=== PATIENT | male | born 1965 | race Caucasian/White ===

== ENCOUNTER 2021-05-18 11:02 | Emergency (ER) | payer MEDICARE ==
--- NOTE | 2021-05-18 12:51 | ED ---
General Adult HPI - General Source: patient, police, EMS, RN notes reviewed Mode of arrival: EMS Limitations: language barrier <Ned Beck - Last Filed: 05/18/21 12:50> <Steve Carias - Last Filed: 05/19/21 13:32> - General Stated complaint: failure to thrive Time Seen by Provider: 05/18/21 11:20 - History of Present Illness Initial comments: This a 55-year-old male presents emergency Department with police EMS for evaluation. Patient's was petitioned by family as he missed has not been taking care of himself, refusing medication and treatment. They state that he's been locked himself and to his apartment. Patient had a prior CVA. Limited verbal. Patient will answer that he has no complaints he is unsure why he is here denies any alcohol or drug abuse. (Ned Beck) - Related Data Home Medications Medication Instructions Recorded Confirmed Aspirin EC [Ecotrin Low Dose] 81 mg PO DAILY 05/18/21 05/18/21 Escitalopram [Lexapro] 10 mg PO DAILY 05/18/21 05/18/21 Famotidine [Pepcid] 20 mg PO BID 05/18/21 05/18/21 Loratadine [Claritin] 10 mg PO DAILY 05/18/21 05/18/21 Metoprolol Succinate [Toprol XL] 50 mg PO DAILY 05/18/21 05/18/21 Simvastatin [Zocor] 20 mg PO HS 05/18/21 05/18/21 lisinopriL [Zestril] 5 mg PO DAILY 05/18/21 05/18/21 Allergies Allergy/AdvReac Type Severity Reaction Status Date / Time Penicillins Allergy Unknown Verified 05/18/21 12:32 Review of Systems ROS Other: All systems not noted in ROS Statement are negative. <Ned Beck - Last Filed: 05/18/21 12:50> ROS Other: All systems not noted in ROS Statement are negative. <Steve Carias - Last Filed: 05/19/21 13:32> ROS Statement: Those systems with pertinent positive or pertinent negative responses have been documented in the HPI. General Exam Limitations: language barrier General appearance: alert, in no apparent distress Head exam: Present: atraumatic, normocephalic, normal inspection Eye exam: Present: normal appearance, PERRL, EOMI. Absent: scleral icterus, conjunctival injection, periorbital swelling ENT exam: Present: normal exam, normal oropharynx, mucous membranes moist Neck exam: Present: normal inspection, full ROM. Absent: tenderness, meningismus, lymphadenopathy Respiratory exam: Present: normal lung sounds bilaterally. Absent: respiratory distress, wheezes, rales, rhonchi, stridor Cardiovascular Exam: Present: regular rate, normal rhythm, normal heart sounds. Absent: systolic murmur, diastolic murmur, rubs, gallop, clicks GI/Abdominal exam: Present: soft, normal bowel sounds. Absent: distended, tenderness, guarding, rebound, rigid <Ned Beck - Last Filed: 05/18/21 12:50> Course <Steve Carias - Last Filed: 05/19/21 13:32> Vital Signs 05/18/21 05/18/21 05/18/21 11:05 18:00 21:48 Temperature 98.1 F Pulse Rate 82 78 80 Respiratory 18 18 18 Rate Blood Pressure 112/88 116/76 121/71 O2 Sat by Pulse 98 98 98 Oximetry 05/19/21 05/19/21 05/19/21 04:00 05:00 12:38 Temperature 97.4 F L 97.6 F Pulse Rate 76 75 80 Respiratory 15 18 18 Rate Blood Pressure 121/79 142/86 114/71 O2 Sat by Pulse 97 96 96 Oximetry - Reevaluation(s) Reevaluation #1: 05/18/21 20:37 Patient was evaluated by EPS. He is minimally verbal but history was obtained. At this time there was request made by EPS to have the patient evaluated by the psychiatrist Dr. Alba in the morning. (Steve Carias) Reevaluation #2: 05/19/21 13:32 The son is planning to turn the patient's care over to the state tomorrow. (Steve Carias) Medical Decision Making - Lab Data Result diagrams: 05/18/21 13:10 05/18/21 13:10 <Steve Carias - Last Filed: 05/19/21 13:32> - Medical Decision Making Patient had been medically cleared and evaluated by EPS and ultimately by the psychiatrist regarding need for inpatient psychiatric treatment. The patient does not meet criteria and does not require any further inpatient psychiatric treatment. He is stable for discharge. He will be given referral for outpatient services. (Steve Carias) - Lab Data Lab Results 05/18/21 05/18/21 05/18/21 Range/Units 13:10 13:10 13:10 WBC 8.1 (3.8-10.6) k/uL RBC 5.15 (4.30-5.90) m/uL Hgb 14.7 (13.0-17.5) gm/dL Hct 44.7 (39.0-53.0) % MCV 86.8 (80.0-100.0) fL MCH 28.5 (25.0-35.0) pg MCHC 32.8 (31.0-37.0) g/dL RDW 14.1 (11.5-15.5) % Plt Count 299 (150-450) k/uL MPV 6.9 Neutrophils % 64 % Lymphocytes % 29 % Monocytes % 5 % Eosinophils % 1 % Basophils % 1 % Neutrophils # 5.2 (1.3-7.7) k/uL Lymphocytes # 2.4 (1.0-4.8) k/uL Monocytes # 0.4 (0-1.0) k/uL Eosinophils # 0.1 (0-0.7) k/uL Basophils # 0.0 (0-0.2) k/uL Sodium 139 (137-145) mmol/L Potassium 4.3 (3.5-5.1) mmol/L Chloride 105 (98-107) mmol/L Carbon Dioxide 28 (22-30) mmol/L Anion Gap 6 mmol/L BUN 16 (9-20) mg/dL Creatinine 0.72 (0.66-1.25) mg/dL Est GFR (CKD-EPI)AfAm >90 (>60 ml/min/1.73 sqM) Est GFR (CKD-EPI)NonAf >90 (>60 ml/min/1.73 sqM) Glucose 88 (74-99) mg/dL Calcium 9.5 (8.4-10.2) mg/dL Total Bilirubin 0.5 (0.2-1.3) mg/dL AST 19 (17-59) U/L ALT 15 (4-49) U/L Alkaline Phosphatase 68 (38-126) U/L Total Protein 6.9 (6.3-8.2) g/dL Albumin 4.3 (3.5-5.0) g/dL TSH (0.465-4.680) mIU/L Urine Color Yellow Urine Appearance Turbid (Clear) Urine pH 7.5 (5.0-8.0) Ur Specific [place] 1.019 (1.001-1.035) Urine Protein Negative (Negative) Urine Glucose (UA) Negative (Negative) Urine Ketones Negative (Negative) Urine Blood Negative (Negative) Urine Nitrite Negative (Negative) Urine Bilirubin Negative (Negative) Urine Urobilinogen <2.0 (<2.0) mg/dL Ur Leukocyte Esterase Negative (Negative) Urine RBC 1 (0-5) /hpf Amorphous Sediment Few H (None) /hpf Urine Mucus Rare H (None) /hpf Urine Opiates Screen Not Detected (NotDetected) Ur Oxycodone Screen Not Detected (NotDetected) Urine Methadone Screen Not Detected (NotDetected) Ur Propoxyphene Screen Not Detected (NotDetected) Ur Barbiturates Screen Not Detected (NotDetected) U Tricyclic Antidepress Not Detected (NotDetected) Ur Phencyclidine Scrn Not Detected (NotDetected) Ur Amphetamines Screen Not Detected (NotDetected) U Methamphetamines Scrn Not Detected (NotDetected) U Benzodiazepines Scrn Not Detected (NotDetected) Urine Cocaine Screen Not Detected (NotDetected) U Marijuana (THC) Screen Detected H (NotDetected) Serum Alcohol <10 mg/dL 05/18/21 Range/Units 13:10 WBC (3.8-10.6) k/uL RBC (4.30-5.90) m/uL Hgb (13.0-17.5) gm/dL Hct (39.0-53.0) % MCV (80.0-100.0) fL MCH (25.0-35.0) pg MCHC (31.0-37.0) g/dL RDW (11.5-15.5) % Plt Count (150-450) k/uL MPV Neutrophils % % Lymphocytes % % Monocytes % % Eosinophils % % Basophils % % Neutrophils # (1.3-7.7) k/uL Lymphocytes # (1.0-4.8) k/uL Monocytes # (0-1.0) k/uL Eosinophils # (0-0.7) k/uL Basophils # (0-0.2) k/uL Sodium (137-145) mmol/L Potassium (3.5-5.1) mmol/L Chloride (98-107) mmol/L Carbon Dioxide (22-30) mmol/L Anion Gap mmol/L BUN (9-20) mg/dL Creatinine (0.66-1.25) mg/dL Est GFR (CKD-EPI)AfAm (>60 ml/min/1.73 sqM) Est GFR (CKD-EPI)NonAf (>60 ml/min/1.73 sqM) Glucose (74-99) mg/dL Calcium (8.4-10.2) mg/dL Total Bilirubin (0.2-1.3) mg/dL AST (17-59) U/L ALT (4-49) U/L Alkaline Phosphatase (38-126) U/L Total Protein (6.3-8.2) g/dL Albumin (3.5-5.0) g/dL TSH 1.320 (0.465-4.680) mIU/L Urine Color Urine Appearance (Clear) Urine pH (5.0-8.0) Ur Specific [place] (1.001-1.035) Urine Protein (Negative) Urine Glucose (UA) (Negative) Urine Ketones (Negative) Urine Blood (Negative) Urine Nitrite (Negative) Urine Bilirubin (Negative) Urine Urobilinogen (<2.0) mg/dL Ur Leukocyte Esterase (Negative) Urine RBC (0-5) /hpf Amorphous Sediment (None) /hpf Urine Mucus (None) /hpf Urine Opiates Screen (NotDetected) Ur Oxycodone Screen (NotDetected) Urine Methadone Screen (NotDetected) Ur Propoxyphene Screen (NotDetected) Ur Barbiturates Screen (NotDetected) U Tricyclic Antidepress (NotDetected) Ur Phencyclidine Scrn (NotDetected) Ur Amphetamines Screen (NotDetected) U Methamphetamines Scrn (NotDetected) U Benzodiazepines Scrn (NotDetected) Urine Cocaine Screen (NotDetected) U Marijuana (THC) Screen (NotDetected) Serum Alcohol mg/dL Disposition <Ned Beck M - Last Filed: 05/18/21 12:50> Is patient prescribed a controlled substance at d/c from ED?: No Time of Disposition: 13:32 <Steve Carias - Last Filed: 05/19/21 13:32> Clinical Impression: Depression Disposition: HOME SELF-CARE Condition: Fair Instructions (If sedation given, give patient instructions): Depression (ED) Referrals: None,Stated [Primary Care Provider] - 1-2 days Gokul Ferguson MD [REFERRING] - 1-2 days
[2021-05-18 13:29] LABS: Basophils % (A) 1 %; Eosinophils # (A) 0.1 k/uL (0-0.7); Eosinophils % (A) 1 %; HCT 44.7 % (39.0-53.0); HGB 14.7 gm/dL (13.0-17.5); Lymphocytes # (A) 2.4 k/uL (1.0-4.8); Lymphocytes % (A) 29 %; MCH 28.5 pg (25.0-35.0); MCHC 32.8 g/dL (31.0-37.0); MCV 86.8 fL (80.0-100.0); Mean Platelet Volume 6.9; Monocytes # (A) 0.4 k/uL (0-1.0); Monocytes % (A) 5 %; Neutrophils # (A) 5.2 k/uL (1.3-7.7); Neutrophils % (A) 64 %; Platelet Count 299 k/uL (150-450); RBC 5.15 m/uL (4.30-5.90); RDW 14.1 % (11.5-15.5); WBC 8.1 k/uL (3.8-10.6)
[2021-05-18 13:47] LABS: ALT 15 U/L (4-49); AST 19 U/L (17-59); African American GFR (CKD) >90 (>60 ml/min/1.73 sqM); Albumin 4.3 g/dL (3.5-5.0); Alcohol <10 mg/dL; Alkaline Phosphatase 68 U/L (38-126); Anion Gap 6 mmol/L; Blood Urea Nitrogen 16 mg/dL (9-20); Calcium 9.5 mg/dL (8.4-10.2); Carbon Dioxide 28 mmol/L (22-30); Chloride 105 mmol/L (98-107); Glucose 88 mg/dL (74-99); Non-African American GFR(CKD) >90 (>60 ml/min/1.73 sqM); Potassium 4.3 mmol/L (3.5-5.1); Sodium 139 mmol/L (137-145); Total Bilirubin 0.5 mg/dL (0.2-1.3); Total Protein 6.9 g/dL (6.3-8.2)
[2021-05-18 14:56] LABS: Amorphous Sediment,Urine Few /hpf; Appearance,Urine Turbid (Clear); Bilirubin,Urine Negative (Negative); Blood,Urine Negative (Negative); Color,Urine Yellow; Glucose,Urine (UA) Negative (Negative); Ketones,Urine Negative (Negative); Leukocyte Esterase,Urine Negative (Negative); Mucus,Urine Rare /hpf; Nitrite,Urine Negative (Negative); PH, Urine 7.5 (5.0-8.0); Protein,Urine Negative (Negative); RBC,Urine 1 /hpf (0-5); Specific Gravity,Urine 1.019 (1.001-1.035); Urobilinogen,Urine <2.0 mg/dL (<2.0)
[2021-05-18 15:06] LABS: Amphetamine Screen,Urine Not Detected (NotDetected); Barbiturate Screen,Urine Not Detected (NotDetected); Benzodiazepines Screen,Urine Not Detected (NotDetected); Cocaine Screen,Urine Not Detected (NotDetected); Methadone Screen, Urine Not Detected (NotDetected); Opiate Screen,Urine Not Detected (NotDetected); Oxycodone Screen, Urine Not Detected (NotDetected); Phencyclidine Screen,Urine Not Detected (NotDetected); Tricyclic Antidepressant,Urine Not Detected (NotDetected); Urn Cannabinoid Scrn Detected (NotDetected)
[2021-05-19 05:34] VITALS: RESP 18; TEMP 97.6
--- NOTE | 2021-05-19 13:10 | P.CN ---
Psychiatric Consult - . Consult date: 05/19/21 Consult:: 05/19/21 13:09 IDENTIFYING DATA: This patient is a , unemployed, 55-year-old male with significant history of CVA presented to the emergency department under petition for increased agitation, and failure to thrive. HISTORY OF PRESENT ILLNESS: The patient presented to the hospital under petition, brought in by police due to concerns that the patient has not been taking care of himself, refusing medication, treatment, and isolating himself in his apartment. Furthermore, as per petition, the patient has been noted by his son to be increasingly aggressive towards his caretakers which includes his son and [id number] and has recently came at his [id number] with a pen. The patient is nonverbal and is only able to answer yes or no fashion. He is unable to communicate by writing out his thoughts or feelings as well due to the deficits left by his stroke. Upon evaluation by this provider, the patient denies any suicidal or homicidal ideation, intention, and/or plan. He is not reporting any auditory or visual hallucinations. He is denying any paranoia or other delusions. The psychiatric evaluation is superficial at best as we are unable to identify any clear intentions for the patient as he has difficulty with communication. The patient is otherwise not reporting any significant issues when asked if there was concerns for his safety or his ability to care for himself. Furthermore, the patient denied that there was any issues regarding his hygiene, appetite, or sleep. Upon evaluation in the emergency department, initial diagnostic blood work dictated concern for failure to thrive. The patient's laboratory work was not concerning for any abnormalities. Collateral information was provided by the patient's son Jed Machado, who also filled out the petition for the patient. The patient's son is currently the patient's guardian. He reports that the patient has been increasingly isolative and has been not taking his medications and has been decreasing his appetite. He does express concern that the patient is trying to kill himself in this way. Despite this, the patient's son also reports that the patient does eat at least one meal a day and does supplement his nutrition with a boost beverage. PAST PSYCHIATRIC HISTORY: Patient denies any psychiatric history. He is currently prescribed Lexapro for depression and anxiety. He reports no prior psychiatric hospitalizations. He reports not patient's psychiatric follow-up. He denies any suicide attempts in the past. PAST MEDICAL HISTORY: Patient has a history of stroke. ALLERGIES: Penicillins CHEMICAL DEPENDENCY HISTORY: The patient denies any significant tobacco, marijuana, alcohol, or illicit drug use. FAMILY PSYCHIATRIC/SUBSTANCE USE HISTORY: Unable to assess. SOCIAL HISTORY: The patient's son is his guardian. He currently lives in an apartment by his son and [id number]. MENTAL STATUS EXAM: General Appearance: Patient appears to be disheveled, with unkempt hair and llamas, and long fingernails. Patient is wearing a hospital gown. Behavior: Patient is calmly lying in bed without any agitated behavior. Eye contact is appropriate. Approaches cooperative and polite. Speech: Patient is nonverbal. He is able to respond in a yes or no fashion. Mood/Affect: Patient gestures to this provider that his mood is "okay." Affect appears to be euthymic. Suicidality/Homicidality: The patient denies any suicidal or homicidal ideation, intention, and/or plan. Perceptions: Patient denies any visual hallucinations and denies any auditory hallucinations Though content/process: Limited in our ability to appropriately assess for any bizarre delusional thought content or abnormal thought processes the patient is nonverbal. Memory and concentration: Memory and concentration appeared to be grossly intact for the purposes of this session. Judgment and insight: Fair IMPRESSIONS: Failure to thrive - diagnostic blood work does not indicate any concerns about failure to thrive. Furthermore, the patient's and does admit the patient does intake some food. Status post CVA PLAN: -At this time patient DOES NOT meet criteria for inpatient psychiatric admiss ion. The patient would receive little to no benefit from a psychiatric admission as he would be unable to fully participate in both the care aspect and in the evaluation appropriately. At this time, the patient is not endorsing any significant psychiatric pathology despite what was written in the petition. Approach and affect of the patient are not consistent with depression at this time. Furthermore, the patient's diagnostic blood work revealed no significant issues regarding the patient's nutritional intake. -Recommend social work and disease case manager rn involvement in regards to providing this patient with appropriate services in the outpatient setting. -Would recommend the following medication changes/additions: Recommend initiation of Remeron 15 mg at bedtime for depression/anxiety/appetite stimulation. Discontinue patient's home medication of Lexapro. -Strongly recommend outpatient psychiatric follow-up for management and evaluation of depression which may be comorbid with the patient's history of stroke. -Discontinue one-to-one sitter -Patient is cleared psychiatrically for discharge. -Psychiatry will sign off at this point, please contact with any questions.
[2021-05-19 15:22] VITALS: BP 125/84; PULSE 87
[2021-05-19] MEDS ORDERED: MIRTAZAPINE 15 MG TAB PO SCH (21:00)
[2021-05-19 23:43] LABS: Folate, Serum 11.7 ng/mL (4.40-31.00)
== END 2021-05-19 15:30 | disposition home or self-care (01) ==
LOC: EC 11:02
DX: F32.9 Major depressive disorder, single episode, unspecified (principal); Z79.82 Long term (current) use of aspirin; Z88.0 Allergy status to penicillin
CPT/HCPCS: 99284; 36415; 82652; 80053; 84443; 82607; 82746; 85025; 81001; 80306; G0480; 80320

== ENCOUNTER 2022-04-30 13:16 | Emergency (ER) | payer MEDICARE ==
[2022-04-30 13:27] VITALS: RESP 18
--- NOTE | 2022-04-30 13:53 | ED ---
Recheck HPI - General Chief Complaint: Recheck/Abnormal Lab/Rx Stated Complaint: Abnormal Labs Time Seen by Provider: 04/30/22 13:20 Source: EMS, RN notes reviewed, old records reviewed Mode of arrival: EMS Limitations: language barrier (aphasia) - History of Present Illness Initial Comments: Patient is a 56-year-old male presents to the emergency department via EMS from [facility] with concerns regarding potentially being "symptomatic" from low calcium level from labs drawn recently. Corrected calcium from those labs revealed a normal calcium of 8.6. Patient has a chronically low albumin level due to poor oral intake with an albumin of 2.2. He does have generalized weakness however he has previously had a stroke and is currently suffering from Covid. He has aphasia with the use of his answer board he denies any shortness of breath or pain. In addition to his stroke history he has a past medical history significant for hypertension, hyperlipidemia, liver disease and was recently diagnosed with splenic and liver infarct in March of this year at [facility]. - Related Data Home Medications Medication Instructions Recorded Confirmed Aspirin EC [Ecotrin Low Dose] 81 mg PO DAILY 05/18/21 05/18/21 Escitalopram [Lexapro] 10 mg PO DAILY 05/18/21 05/18/21 Famotidine [Pepcid] 20 mg PO BID 05/18/21 05/18/21 Loratadine [Claritin] 10 mg PO DAILY 05/18/21 05/18/21 Metoprolol Succinate [Toprol XL] 50 mg PO DAILY 05/18/21 05/18/21 Simvastatin [Zocor] 20 mg PO HS 05/18/21 05/18/21 lisinopriL [Zestril] 5 mg PO DAILY 05/18/21 05/18/21 Allergies Allergy/AdvReac Type Severity Reaction Status Date / Time Penicillins Allergy Unknown Verified 04/30/22 13:27 Review of Systems ROS Statement: Those systems with pertinent positive or pertinent negative responses have been documented in the HPI. ROS Other: All systems not noted in ROS Statement are negative. Past Medical History Past Medical History: CVA/TIA, Hyperlipidemia, Hypertension, Liver Disease History of Any Multi-Drug Resistant Organisms: None Reported Past Psychological History: No Psychological Hx Reported Smoking Status: Never smoker Past Alcohol Use History: None Reported Past Drug Use History: None Reported General Exam Limitations: language barrier General appearance: alert, in no apparent distress Head exam: Present: atraumatic, normocephalic, normal inspection Eye exam: Present: normal appearance, PERRL. Absent: scleral icterus, conjunctival injection ENT exam: Present: mucous membranes moist Neck exam: Present: normal inspection. Absent: tenderness Respiratory exam: Present: rhonchi (Scattered improved with cough). Absent: respiratory distress, wheezes, rales, stridor, accessory muscle use Cardiovascular Exam: Present: regular rate, normal rhythm, normal heart sounds. Absent: systolic murmur, diastolic murmur, rubs, gallop, clicks GI/Abdominal exam: Present: soft, tenderness (chronic), normal bowel sounds. Absent: distended, guarding, rebound, rigid Rectal exam: Present: deferred Extremities exam: Present: normal inspection. Absent: pedal edema, joint swelling Back exam: Present: normal inspection Neurological exam: Present: alert, CN II-XII intact (grossly) Expanded Neurological exam: Present: protecting the airway Speech: Present: total aphasia Psychiatric exam: Present: flat affect Skin exam: Present: warm, dry, intact, normal color. Absent: rash Course Vital Signs 04/30/22 13:17 Temperature 97.8 F Pulse Rate 81 Respiratory 18 Rate Blood Pressure 105/74 O2 Sat by Pulse 98 Oximetry - Reevaluation(s) Reevaluation #1: Nurse called report to [facility] who advised that patient was sent to the emergency room for increased weakness to his right side; this is the affected stroke side. Due to their statement repeat neurological exam and assessment a patient completed. Bilateral lower extremity strength 4/5 in upper extremities 4/5 with right side slightly weaker than left. No significant abnormalities noted. Given previous CVA and known COVID diagnoses increased weakness on known deficits can be expected. No indication for repeat computed tomography scan at this time. Will continue with plans discharge back to [facility]. Time: 15:25 Medical Decision Making - Medical Decision Making 56-year-old male with known COVID positive living in [facility] presenting to the emergency department with concerns regarding symptomatic hypocalcemia and hyponatremia. Sodium levels marginally low. Calcium levels normal once corrected for low albumin. No indication for diagnostic imaging. Will repeat comp panel to confirm laboratory studies. Hemodynamically stable. Afebrile and satting well. Will continue to monitor. Review labs did show mild hyponatremia and hypochloremia will give IV fluids for dental hydration. Corrected calcium repeat 9.1. Overall mild generalized weakness with right side slightly weaker than left but at baseline according to patient. The use of his communication to well. No indication for further imaging or diagnostic testing. Will discharge patient back to [facility]. Case discussed with Dr. Vieira. - Lab Data Result diagrams: 04/30/22 13:20 Lab Results 04/30/22 Range/Units 13:20 Sodium 128 L (137-145) mmol/L Potassium 4.4 (3.5-5.1) mmol/L Chloride 93 L (98-107) mmol/L Carbon Dioxide 27 (22-30) mmol/L Anion Gap 8 mmol/L BUN 10 (9-20) mg/dL Creatinine 0.58 L (0.66-1.25) mg/dL Est GFR (CKD-EPI)AfAm >90 (>60 ml/min/1.73 sqM) Est GFR (CKD-EPI)NonAf >90 (>60 ml/min/1.73 sqM) Glucose 107 H (74-99) mg/dL Calcium 8.1 L (8.4-10.2) mg/dL Total Bilirubin 0.4 (0.2-1.3) mg/dL AST 38 (17-59) U/L ALT 82 H (4-49) U/L Alkaline Phosphatase 75 (38-126) U/L Total Protein 5.0 L (6.3-8.2) g/dL Albumin 2.8 L (3.5-5.0) g/dL Disposition Clinical Impression: Hyponatremia, COVID Disposition: HOME SELF-CARE Condition: Stable Is patient prescribed a controlled substance at d/c from ED?: No Referrals: Tay Crandall DO [Primary Care Provider] - 1-2 days Time of Disposition: 15:30
[2022-04-30 14:07] LABS: ALT 82 U/L (4-49); AST 38 U/L (17-59); African American GFR (CKD) >90 (>60 ml/min/1.73 sqM); Albumin 2.8 g/dL (3.5-5.0); Alkaline Phosphatase 75 U/L (38-126); Anion Gap 8 mmol/L; Blood Urea Nitrogen 10 mg/dL (9-20); Calcium 8.1 mg/dL (8.4-10.2); Carbon Dioxide 27 mmol/L (22-30); Chloride 93 mmol/L (98-107); Glucose 107 mg/dL (74-99); Non-African American GFR(CKD) >90 (>60 ml/min/1.73 sqM); Potassium 4.4 mmol/L (3.5-5.1); Sodium 128 mmol/L (137-145); Total Bilirubin 0.4 mg/dL (0.2-1.3)
[2022-04-30] MEDS ORDERED: SODIUM CHLORIDE 0.9% 1,000 ML IV STA (14:29)
[2022-04-30 15:35] VITALS: BP 108/74; PULSE 78; TEMP 97.7
== END 2022-04-30 15:36 | disposition home or self-care (01) ==
LOC: EC 13:16
DX: E87.1 Hypo-osmolality and hyponatremia (principal); U07.1 COVID-19; E87.8 Other disorders of electrolyte and fluid balance, not elsewhere classified; R53.1 Weakness; E78.5 Hyperlipidemia, unspecified; I10 Essential (primary) hypertension; Z86.73 Personal history of transient ischemic attack (TIA), and cerebral infarction without residual deficits; Z88.0 Allergy status to penicillin; Z79.899 Other long term (current) drug therapy; Z79.82 Long term (current) use of aspirin
CPT/HCPCS: 36415; 80053; 99285

== ENCOUNTER 2022-05-21 12:30 | Emergency (ER) | payer MEDICARE ==
--- NOTE | 2022-05-21 12:41 | ED ---
General Adult HPI - General Stated complaint: DVT poss Time Seen by Provider: 05/21/22 12:32 Source: patient, EMS, RN notes reviewed Mode of arrival: EMS Limitations: language barrier - History of Present Illness Initial comments: Patient is a pleasant nonverbal 56-year-old male presenting to the emergency department with concern for discomfort right calf. Unclear onset. Patient has a difficult time expressing complaints. Patient does point to his right calf. No apparent other area of concern. No reported. No reported chest pain or dyspnea. Chart review reveals patient is currently on Coumadin. - Related Data Home Medications Medication Instructions Recorded Confirmed Aspirin EC [Ecotrin Low Dose] 81 mg PO DAILY 05/18/21 05/18/21 Escitalopram [Lexapro] 10 mg PO DAILY 05/18/21 05/18/21 Famotidine [Pepcid] 20 mg PO BID 05/18/21 05/18/21 Loratadine [Claritin] 10 mg PO DAILY 05/18/21 05/18/21 Metoprolol Succinate [Toprol XL] 50 mg PO DAILY 05/18/21 05/18/21 Simvastatin [Zocor] 20 mg PO HS 05/18/21 05/18/21 lisinopriL [Zestril] 5 mg PO DAILY 05/18/21 05/18/21 Allergies Allergy/AdvReac Type Severity Reaction Status Date / Time Penicillins Allergy Unknown Verified 04/30/22 13:27 Review of Systems ROS Statement: Those systems with pertinent positive or pertinent negative responses have been documented in the HPI. ROS Other: All systems not noted in ROS Statement are negative. Limitations: ROS unobtainable due to patients medical condition Past Medical History Past Medical History: CVA/TIA, Hyperlipidemia, Hypertension, Liver Disease History of Any Multi-Drug Resistant Organisms: None Reported Past Psychological History: No Psychological Hx Reported Smoking Status: Never smoker Past Alcohol Use History: None Reported Past Drug Use History: None Reported General Exam Limitations: language barrier General appearance: alert, in no apparent distress Head exam: Present: normocephalic Eye exam: Present: normal appearance Neck exam: Present: normal inspection Respiratory exam: Present: normal lung sounds bilaterally Cardiovascular Exam: Present: regular rate, normal rhythm GI/Abdominal exam: Present: soft. Absent: tenderness Extremities exam: Present: calf tenderness (Right calf specifically of area with mild erythema and a pattern consistent with vein, likely superficial thrombosis) Neurological exam: Present: alert Psychiatric exam: Present: normal affect, normal mood Skin exam: Present: dry Course Vital Signs 05/21/22 12:34 Temperature 97.8 F Pulse Rate 76 Respiratory 16 Rate Blood Pressure 115/71 O2 Sat by Pulse 99 Oximetry Medical Decision Making - Medical Decision Making Patient reevaluated and updated. Patient will need follow-up with primary care physician to determine Coumadin need - Lab Data Lab Results 05/21/22 Range/Units 12:50 PT 10.7 (9.0-12.0) sec INR 1.0 (<1.2) APTT 21.1 L (22.0-30.0) sec - Radiology Data Radiology results: report reviewed (Ultrasound negative for DVT) Disposition Clinical Impression: Calf pain Disposition: HOME SELF-CARE Condition: Stable Instructions (If sedation given, give patient instructions): Superficial Thrombophlebitis (ED) Additional Instructions: Please do follow-up with primary care physician in the next day or 2 for reevaluation and determination on Coumadin status. [id number] nonsteroidals such as ibuprofen as needed. Compression and elevation. Return for increased pain, swelling, fever, redness, worsening symptoms or any other concerns Is patient prescribed a controlled substance at d/c from ED?: No Referrals: Tay Crandall DO [Primary Care Provider] - 1-2 days Time of Disposition: 13:47
[2022-05-21 12:43] VITALS: RESP 16; TEMP 97.8
[2022-05-21 13:10] LABS: Prothrombin Time 10.7 sec (9.0-12.0)
[2022-05-21 13:15] LABS: Partial Thromboplastin Time 21.1 sec (22.0-30.0)
--- NOTE | 2022-05-21 13:34 | US ---
EXAMINATION TYPE: US venous doppler duplex LE RT DATE OF EXAM: 05/21/2022 12:38 PM COMPARISON: NONE CLINICAL HISTORY: pain. Right leg pain. No redness or swelling. SIDE PERFORMED: Right TECHNIQUE: The lower extremity deep venous system is examined utilizing real time linear array sonog diana with graded compression, doppler sonography and color-flow sonography. VESSELS IMAGED: Common Femoral Vein Deep Femoral Vein Greater Saphenous Vein * Femoral Vein Popliteal Vein Small Saphenous Vein * Proximal Calf Veins (* superficial vessels) Right Leg: Negative for DVT IMPRESSION: 1. Right lower extremity ultrasound negative for deep venous thrombosis.
[2022-05-21] MEDS ORDERED: IBUPROFEN 400 MG TAB PO STA (13:54)
[2022-05-21 14:25] VITALS: BP 111/65; PULSE 69
== END 2022-05-21 16:32 | disposition home or self-care (01) ==
LOC: EC 12:30
DX: M79.661 Pain in right lower leg (principal); E78.5 Hyperlipidemia, unspecified; I10 Essential (primary) hypertension; Z88.0 Allergy status to penicillin; Z79.82 Long term (current) use of aspirin; Z79.899 Other long term (current) drug therapy
CPT/HCPCS: 36415; 85610; 85730; 99283

== ENCOUNTER 2022-07-18 18:32 | Emergency (ER) | payer MEDICARE, OTHER ==
[2022-07-18 19:16] VITALS: TEMP 97.1
[2022-07-18] MEDS ORDERED: SODIUM CHLORIDE 0.9% 500 ML 500 ML IV STA (19:19)
--- NOTE | 2022-07-18 19:26 | ED ---
General Adult HPI - General Source: patient, EMS, RN notes reviewed, old records reviewed Mode of arrival: EMS Limitations: language barrier <Edilson Vieira - Last Filed: 07/18/22 22:41> <Guerrero Keller - Last Filed: 07/19/22 01:39> - General Chief complaint: Abdominal Pain Stated complaint: abd pain Time Seen by Provider: 07/18/22 18:55 - History of Present Illness Initial comments: This a 56-year-old male presents emergency Department from the [place] [facility] sent him in because he was indicating abdominal pain. Patient is a very poor historian however he did point to his left lower quadrant on multiple occasions when asked what the problem was. Patient held up for fingers when I asked him how many days he's been having pain. We had a history of constant chronic constipation. We have no history of any fever chills with no history of any difficulty breathing. No history of any nausea vomiting or diarrhea. Patient has no further history available because there is no caregiver or family with the patient (Edilson Vieira) - Related Data Home Medications Medication Instructions Recorded Confirmed Aspirin EC [Ecotrin Low Dose] 81 mg PO DAILY 05/18/21 07/18/22 Famotidine [Pepcid] 20 mg PO BID 05/18/21 07/18/22 Albuterol Nebulized [Ventolin 2.5 mg INHALATION RT-Q6H PRN 07/18/22 07/18/22 Nebulized] Albuterol Nebulized [Ventolin 2.5 mg INHALATION 07/18/22 07/18/22 Nebulized] RT-QID@08,12,16,20 Amiodarone [Cordarone] 200 mg PO DAILY 07/18/22 07/18/22 Atorvastatin [Lipitor] 40 mg PO HS 07/18/22 07/18/22 Cholecalciferol [Vitamin D3 (25 50 mcg PO DAILY 07/18/22 07/18/22 Mcg = 1000 Iu)] Citalopram Hydrobromide [CeleXA] 20 mg PO DAILY 07/18/22 07/18/22 HYDROcodone/APAP 5-325MG [[place] 1 tab PO Q4H PRN 07/18/22 07/18/22 5-325] Lidocaine [Aspercreme Patch] 1 patch TRANSDERM DAILY 07/18/22 07/18/22 Metoprolol Tartrate [Lopressor] 25 mg PO BID 07/18/22 07/18/22 Multivitamins, Thera [Multivitamin 1 tab PO DAILY 07/18/22 07/18/22 (formulary)] Phenyleph/Pramoxin/Glycr/W.pet 1 applic RECTAL BID 07/18/22 07/18/22 [Preparation H Cream] Warfarin [Coumadin] 2.5 mg PO HS 07/18/22 07/18/22 polyethylene glycoL 3350 17 gm PO DAILY 07/18/22 07/18/22 [Polyethylene Glycol 3350] Allergies Allergy/AdvReac Type Severity Reaction Status Date / Time Penicillins Allergy Unknown Verified 07/18/22 22:12 Review of Systems ROS Other: All systems not noted in ROS Statement are negative. <Edilson Vieira - Last Filed: 07/18/22 22:41> ROS Other: All systems not noted in ROS Statement are negative. <Guerrero Keller - Last Filed: 07/19/22 01:39> ROS Statement: Those systems with pertinent positive or pertinent negative responses have been documented in the HPI. Past Medical History Past Medical History: CVA/TIA, Hyperlipidemia, Hypertension, Liver Disease History of Any Multi-Drug Resistant Organisms: None Reported Past Psychological History: No Psychological Hx Reported Smoking Status: Never smoker Past Alcohol Use History: None Reported Past Drug Use History: None Reported <Edilson Vieira - Last Filed: 07/18/22 22:41> General Exam Limitations: language barrier <Edilson Vieira - Last Filed: 07/18/22 22:41> - General Exam Comments Initial Comments: GENERAL: Patient is well-developed and well-nourished. Patient is nontoxic and well- hydrated and is in mild distress. ENT: Neck is soft and supple. No significant lymphadenopathy is noted. Oropharynx is clear. Moist mucous membranes. Neck has full range of motion without eliciting any pain. EYES: The sclera were anicteric and conjunctiva were pink and moist. Extraocular movements were intact and pupils were equal round and reactive to light. Eyelids were unremarkable. PULMONARY: Unlabored respirations. Good breath sounds bilaterally. No audible rales rhon chi or wheezing was noted. CARDIOVASCULAR: There is a regular rate and rhythm without any murmurs gallops or rubs. ABDOMEN: Patient appears to have diffuse tenderness but particularly in the left lower quadrant. SKIN: Skin is clear with no lesions or rashes and otherwise unremarkable. NEUROLOGIC: Patient is alert and oriented difficult to assess since the patient is nonverbal. Cranial nerves II through XII are grossly intact. Motor and sensory are also intact. MUSCULOSKELETAL: Normal extremities with adequate strength and full range of motion. LYMPHATICS: No significant lymphadenopathy is noted PSYCHIATRIC: Patient is nonverbal unable to assess (Edilson Vieira) Course Vital Signs 07/18/22 07/18/22 07/18/22 18:32 20:15 21:30 Temperature 97.1 F L Pulse Rate 135 H 126 H 122 H Respiratory 44 H 22 26 H Rate Blood Pressure 126/87 124/93 132/72 O2 Sat by Pulse 96 97 Oximetry 07/18/22 07/18/22 07/18/22 22:05 22:14 22:41 Temperature Pulse Rate 156 H 161 H 130 H Respiratory 36 H 36 H 40 H Rate Blood Pressure 130/88 147/94 112/75 O2 Sat by Pulse 74 L 76 L 90 L Oximetry 07/18/22 07/19/22 23:48 00:13 Temperature Pulse Rate 130 H 128 H Respiratory 26 H 32 H Rate Blood Pressure 116/90 119/79 O2 Sat by Pulse 97 97 Oximetry EKG Findings - EKG Comments: EKG Findings:: Initial EKG was reported by Dr. Vieira. A repeat EKG was obtained was the patient received a bolus of 150 mg of amiodarone. This repeat EKG showed a rate of 132, [place] interval of 182, QR mosque of 137 and QTC of 399. This showed a wide complex sinus tachycardia however did not show any signs of ST segment elevation or depression noted. There was not V. tach noted at this time. <Guerrero Keller - Last Filed: 07/19/22 01:39> Medical Decision Making - Lab Data Result diagrams: 07/18/22 20:14 07/18/22 20:14 <Edilson Vieira - Last Filed: 07/18/22 22:41> - Lab Data Result diagrams: 07/18/22 20:14 07/18/22 22:43 <Guerrero Keller - Last Filed: 07/19/22 01:39> - Medical Decision Making EKG shows sinus rhythm at 120 bpm QRS is 100 QT interval is 294 QTC is 370. Patient's EKG shows Q waves in V1 and V2 and V3. Patient repeat EKG because his heart rate jumped up to 150 EKG shows a wide complex rhythm at 154 bpm QRS on a 35 Q-T intervals 305 QTC is [address] segment elevation in V1 and V2 and V3. Dr. Keller will be taking over the care of this patient at 1040 (Edilson Vieira) I assumed care of the patient from Dr. Vieira at 2240. Was pt. sent in by a medical professional or institution? @ -Sent in by the nursing facility, [facility] Did you speak to anyone other than the patient for history? @ -EMS Did you review nursing and triage notes? @ -Nursing triage notes were obtained as the patient was nonverbal could answer questions with a had not or headshake. Were old charts reviewed? @ -Yes, old admissions were reviewed Differential Diagnosis? @ -Initially, abdominal pain, gastroneuritis, UTI however throughout the progression of the patient's course, differential is expanded to include an aortic thrombus, peripheral vascular disease, peripheral artery disease, aortic dissection EKG interpreted by me (3pts min.)? @ -As above 2 X-rays interpreted by me (1pt min.)? @ -Chest x-ray was initially obtained and was interpreted by myself showing no active cardiopulmonary disease. CT interpreted by me (1pt min.)? @ -CT abdomen and pelvis without contrast was initially ordered by the previous physician, Dr. Vieira and was interpreted by myself showing left perinephric fat stranding without evidence of hydronephrosis. There was mild circumferential wall thickening of the left: Measuring up to 7 mm. There was also severe atherosclerosis of the arterial vasculature most pronounced in the distal aorta. There is trace bilateral pleural effusions. Due to the patient's worsening course including mottling of the lower extremities up to the abdomen as well as increasing lethargy acid from 1 to 9 within 2 hours, a CTA of the chest, abdomen and pelvis with runoff was obtained despite the patient's significantly elevated creatinine. The benefits of the study significantly outweighed the risks. The vascular surgeon, Dr. Beckwith was contacted regarding this and did also agree. CTA was interpreted by myself and showed a thrombus of the abdominal aorta at the level of the origin of the SMA. There is minimal arterial flow in the right renal artery opacification of the anterior cortex right kidney. There is no flow seen in the left renal artery. There is no flow seen in the lower abdominal aorta and the iliac arteries. There are collateral vessels in the abdomen supplying the femoral arteries. There is arterial flow in both legs without evidence of focal hemodynamic arterial stenosis. There was no evidence of PE however. U/S interpreted by me (1pt. min.)? @ -[none] What testing was considered but not performed? (CT, X-rays, U/S, labs)? Why? @None What meds were considered but not given? Why? @ -[none] Did you discuss the management of the patient with other professionals? @ -Yes, was contacted regarding the patient's sudden tachycardia who did recommend a push of amiodarone as well as an amiodarone drip and heparin drip. Due to the patient's findings of mottling of the lower extremities in the setting of increasing lactic acid and findings and CTA, Dr. Beckwith was contacted regarding the patient's presentation. Dr. Beckwith was initially contacted at [phone]. Once the CT results were obtained, Dr. Truong was contacted once again at 0054. She did recommend transfer to [facility] as the patient did require more complex vascular surgical prevention. Did you reconcile home meds? @ -[none] Was smoking cessation discussed for >3mins.? @ -[none] Was critical care preformed (if so, how long)? @ -Yes, see above Were there social determinants of health that impacted care today? How? (Homeles sness, low income, unemployed, alcoholism, drug addiction, transportation, low edu. Level, literacy, decrease access to med. care, usp, rehab)? @ -Patient has previous CVA, lives in a nursing facility Was there de-escalation of care discussed even if they declined? (Discuss DNR or withdrawal of care, Hospice)? @ -Yes, the patient's legal guardian was contacted regarding CODE STATUS and it was discussed the patient was full code and could not be changed without a court order. What co-morbidities impacted this encounter? (DM, HTN, Smoking, COPD, CAD, Cancer, CVA, Hep., AIDS, mental health diagnosis, sleep apnea, morbid obesity)? @ -Previous CVA Was patient admitted / discharged? @ -The patient was initially seen in the emergency department by Dr. Vieira. I a ssumed care of the patient at 2240. The patient was taken to the resuscitation bay secondary to the patient's significantly and sudden elevated heart rate. When he did arrive, I did assume care of the patient and noted that his abdomen and lower extremity is were mottled. The previous physician, Dr. Vieira did speak with the interpreter translator on-call, , who did state that this rhythm was not V. tach and to attempt to try a dose of amiodarone. The patient was given a dose of 150 mg of amiodarone. The patient was continued on amiodarone drip and a heparin drip per the interpreter translator recommendations. Due to the patient's continued symptoms, repeat laboratory workup was obtained and showed a significantly increased lactic acid from 1to 9 within 2 hours. The patient's creatinine was significantly elevated and continued to increase to 6.2. Due to these findings in the setting of mottling of the lower extremities and no dopplerable pulses in the lower extremity is, Dr. Beckwith, the vascular surgeon, was contacted at 2310. Due to the patient's significant DESIREE, cause was given regarding the testing however due to the patient's symptoms, it was determined that the benefits did outweighed the risks for a CTA. CTA was obtained and was per above. Dr. Beckwith was also contacted once again and did recommend the patient be transferred to a higher level of care as the patient did require further more complex vascular surgical intervention. The patient continued to remain stable and had significant improvements the emergency department while on heparin and amiodarone. The patient was resting in bed comfortably with normal vital signs. The patient did however continue to remain mottled in the bilateral lower extremities. The patient was accepted for transfer to [facility] by Dr. Schofield at 0100. The patient was transferred in stable condition. Undiagnosed new problem with uncertain prognosis? @ -No Drug Therapy requiring intensive monitoring for toxicity (Heparin, Nitro, Insulin, Cardizem)? @ -Heparin, amiodarone Were any procedures done? @ -[none] Diagnosis/symptom? @ -Abdominal aortic thrombus Acute, or Chronic, or Acute on Chronic? @ -Acute Uncomplicated (without systemic symptoms) or Complicated (systemic symptoms)? @ -Complicated Side effects of treatment? @ -[none] Exacerbation, Progression, or Severe Exacerbation] @ -[no] Poses a threat to life or bodily function? @ -Yes Diagnosis/symptom? @ -Acute kidney injury Acute, or Chronic, or Acute on Chronic? @ -Acute Uncomplicated (without systemic symptoms) or Complicated (systemic symptoms)? @ -Complicated Side effects of treatment? @ -[none] Exacerbation, Progression, or Severe Exacerbation] @ -[no] Poses a threat to life or bodily function? @ -Yes Diagnosis/symptom? @ -Hyperkalemia Acute, or Chronic, or Acute on Chronic? @ -Acute Uncomplicated (without systemic symptoms) or Complicated (systemic symptoms)? @ -Uncomplicated Side effects of treatment? @ -[none] Exacerbation, Progression, or Severe Exacerbation] @ -[no] Poses a threat to life or bodily function? @ -No (Guerrero Keller) - Lab Data Lab Results 07/18/22 07/18/22 07/18/22 Range/Units 20:14 20:14 20:14 WBC 22.5 H (3.8-10.6) k/uL RBC 4.50 (4.30-5.90) m/uL Hgb 13.1 (13.0-17.5) gm/dL Hct 38.9 L (39.0-53.0) % MCV 86.5 (80.0-100.0) fL MCH 29.2 (25.0-35.0) pg MCHC 33.7 (31.0-37.0) g/dL RDW 13.7 (11.5-15.5) % Plt Count 251 (150-450) k/uL MPV 7.9 Neutrophils % 86 % Lymphocytes % 7 % Monocytes % 5 % Eosinophils % 1 % Basophils % 0 % Neutrophils # 19.4 H (1.3-7.7) k/uL Lymphocytes # 1.7 (1.0-4.8) k/uL Monocytes # 1.1 H (0-1.0) k/uL Eosinophils # 0.1 (0-0.7) k/uL Basophils # 0.1 (0-0.2) k/uL PT 10.4 (9.0-12.0) sec INR 1.0 (<1.2) APTT 25.3 (22.0-30.0) sec Sample Site ABG pH (7.35-7.45) ABG pCO2 (35-45) mmHg ABG pO2 (83-108) mmHg ABG HCO3 (21-25) mmol/L ABG Total CO2 (19-24) mmol/L ABG O2 Saturation (94-97) % ABG Base Excess mmol/L Nam Test FiO2 % Sodium 131 L (137-145) mmol/L Potassium 5.8 H (3.5-5.1) mmol/L Chloride 100 (98-107) mmol/L Carbon Dioxide 20 L (22-30) mmol/L Anion Gap 11 mmol/L BUN 66 H (9-20) mg/dL Creatinine 5.91 H (0.66-1.25) mg/dL Est GFR (CKD-EPI)AfAm 11 (>60 ml/min/1.73 sqM) Est GFR (CKD-EPI)NonAf 10 (>60 ml/min/1.73 sqM) Glucose 110 H (74-99) mg/dL Lactic Ac Sepsis Rflx Plasma Lactic Acid Bryan (0.7-2.0) mmol/L Calcium 8.3 L (8.4-10.2) mg/dL Magnesium 2.3 (1.6-2.3) mg/dL Total Bilirubin 1.3 (0.2-1.3) mg/dL AST 71 H (17-59) U/L ALT 88 H (4-49) U/L Alkaline Phosphatase 78 (38-126) U/L Troponin I (0.000-0.034) ng/mL Total Protein 5.8 L (6.3-8.2) g/dL Albumin 3.4 L (3.5-5.0) g/dL Amylase 55 (30-110) U/L Lipase 43 (23-300) U/L 07/18/22 07/18/22 07/18/22 Range/Units 20:14 20:14 22:21 WBC (3.8-10.6) k/uL RBC (4.30-5.90) m/uL Hgb (13.0-17.5) gm/dL Hct (39.0-53.0) % MCV (80.0-100.0) fL MCH (25.0-35.0) pg MCHC (31.0-37.0) g/dL RDW (11.5-15.5) % Plt Count (150-450) k/uL MPV Neutrophils % % Lymphocytes % % Monocytes % % Eosinophils % % Basophils % % Neutrophils # (1.3-7.7) k/uL Lymphocytes # (1.0-4.8) k/uL Monocytes # (0-1.0) k/uL Eosinophils # (0-0.7) k/uL Basophils # (0-0.2) k/uL PT (9.0-12.0) sec INR (<1.2) APTT (22.0-30.0) sec Sample Site Right Femoral ABG pH 7.22 L (7.35-7.45) ABG pCO2 35 (35-45) mmHg ABG pO2 267 H (83-108) mmHg ABG HCO3 15 L (21-25) mmol/L ABG Total CO2 16 L (19-24) mmol/L ABG O2 Saturation 99.6 H (94-97) % ABG Base Excess -13.2 mmol/L Nam Test Yes FiO2 100 % Sodium (137-145) mmol/L Potassium (3.5-5.1) mmol/L Chloride (98-107) mmol/L Carbon Dioxide (22-30) mmol/L Anion Gap mmol/L BUN (9-20) mg/dL Creatinine (0.66-1.25) mg/dL Est GFR (CKD-EPI)AfAm (>60 ml/min/1.73 sqM) Est GFR (CKD-EPI)NonAf (>60 ml/min/1.73 sqM) Glucose (74-99) mg/dL Lactic Ac Sepsis Rflx Plasma Lactic Acid Bryan 1.8 (0.7-2.0) mmol/L Calcium (8.4-10.2) mg/dL Magnesium (1.6-2.3) mg/dL Total Bilirubin (0.2-1.3) mg/dL AST (17-59) U/L ALT (4-49) U/L Alkaline Phosphatase (38-126) U/L Troponin I 2.050 H* (0.000-0.034) ng/mL Total Protein (6.3-8.2) g/dL Albumin (3.5-5.0) g/dL Amylase (30-110) U/L Lipase (23-300) U/L 07/18/22 07/18/22 07/18/22 Range/Units 22:43 22:43 22:43 WBC (3.8-10.6) k/uL RBC (4.30-5.90) m/uL Hgb (13.0-17.5) gm/dL Hct (39.0-53.0) % MCV (80.0-100.0) fL MCH (25.0-35.0) pg MCHC (31.0-37.0) g/dL RDW (11.5-15.5) % Plt Count (150-450) k/uL MPV Neutrophils % % Lymphocytes % % Monocytes % % Eosinophils % % Basophils % % Neutrophils # (1.3-7.7) k/uL Lymphocytes # (1.0-4.8) k/uL Monocytes # (0-1.0) k/uL Eosinophils # (0-0.7) k/uL Basophils # (0-0.2) k/uL PT (9.0-12.0) sec INR (<1.2) APTT (22.0-30.0) sec Sample Site ABG pH (7.35-7.45) ABG pCO2 (35-45) mmHg ABG pO2 (83-108) mmHg ABG HCO3 (21-25) mmol/L ABG Total CO2 (19-24) mmol/L ABG O2 Saturation (94-97) % ABG Base Excess mmol/L Nam Test FiO2 % Sodium 135 L (137-145) mmol/L Potassium 5.4 H (3.5-5.1) mmol/L Chloride 106 (98-107) mmol/L Carbon Dioxide 14 L (22-30) mmol/L Anion Gap 15 mmol/L BUN 59 H (9-20) mg/dL Creatinine 6.28 H (0.66-1.25) mg/dL Est GFR (CKD-EPI)AfAm 10 (>60 ml/min/1.73 sqM) Est GFR (CKD-EPI)NonAf 9 (>60 ml/min/1.73 sqM) Glucose 88 (74-99) mg/dL Lactic Ac Sepsis Rflx Plasma Lactic Acid Bryan 9.1 H* (0.7-2.0) mmol/L Calcium 10.1 (8.4-10.2) mg/dL Magnesium (1.6-2.3) mg/dL Total Bilirubin 1.3 (0.2-1.3) mg/dL AST 121 H (17-59) U/L ALT 102 H (4-49) U/L Alkaline Phosphatase 58 (38-126) U/L Troponin I 2.050 H* (0.000-0.034) ng/mL Total Protein 4.9 L (6.3-8.2) g/dL Albumin 2.8 L (3.5-5.0) g/dL Amylase (30-110) U/L Lipase (23-300) U/L 07/18/22 Range/Units 23:03 WBC (3.8-10.6) k/uL RBC (4.30-5.90) m/uL Hgb (13.0-17.5) gm/dL Hct (39.0-53.0) % MCV (80.0-100.0) fL MCH (25.0-35.0) pg MCHC (31.0-37.0) g/dL RDW (11.5-15.5) % Plt Count (150-450) k/uL MPV Neutrophils % % Lymphocytes % % Monocytes % % Eosinophils % % Basophils % % Neutrophils # (1.3-7.7) k/uL Lymphocytes # (1.0-4.8) k/uL Monocytes # (0-1.0) k/uL Eosinophils # (0-0.7) k/uL Basophils # (0-0.2) k/uL PT (9.0-12.0) sec INR (<1.2) APTT (22.0-30.0) sec Sample Site ABG pH (7.35-7.45) ABG pCO2 (35-45) mmHg ABG pO2 (83-108) mmHg ABG HCO3 (21-25) mmol/L ABG Total CO2 (19-24) mmol/L ABG O2 Saturation (94-97) % ABG Base Excess mmol/L Nam Test FiO2 % Sodium (137-145) mmol/L Potassium (3.5-5.1) mmol/L Chloride (98-107) mmol/L Carbon Dioxide (22-30) mmol/L Anion Gap mmol/L BUN (9-20) mg/dL Creatinine (0.66-1.25) mg/dL Est GFR (CKD-EPI)AfAm (>60 ml/min/1.73 sqM) Est GFR (CKD-EPI)NonAf (>60 ml/min/1.73 sqM) Glucose (74-99) mg/dL Lactic Ac Sepsis Rflx Y Plasma Lactic Acid Bryan (0.7-2.0) mmol/L Calcium (8.4-10.2) mg/dL Magnesium (1.6-2.3) mg/dL Total Bilirubin (0.2-1.3) mg/dL AST (17-59) U/L ALT (4-49) U/L Alkaline Phosphatase (38-126) U/L Troponin I (0.000-0.034) ng/mL Total Protein (6.3-8.2) g/dL Albumin (3.5-5.0) g/dL Amylase (30-110) U/L Lipase (23-300) U/L Critical Care Time Critical Care Time: Yes Total Critical Care Time: 135 <Guerrero Keller - Last Filed: 07/19/22 01:39> Disposition Time of Disposition: 21:35 <Edilson Vieira - Last Filed: 07/18/22 22:41> Is patient prescribed a controlled substance at d/c from ED?: No Time of Disposition: 01:00 - Out of Hospital Transfer - Req. Specs Out of Hospital Transfer - Requested Specifics: Surgical ICU ([facility] Emergency Department) <Guerrero Keller - Last Filed: 07/19/22 01:39> Clinical Impression: Acute renal failure, Elevated troponin, Hyperkalemia, Urinary tract infection, Aortic thrombus, DESIREE (acute kidney injury) Disposition: OTHER INSTITUTION NOT DEFINED Condition: Serious Referrals: Tay Crandall DO [Primary Care Provider] - 1-2 days
[2022-07-18] MEDS ORDERED: SODIUM CHLORIDE 0.9% 1,000 ML IV ONE ×3 (19:30→23:14)
--- NOTE | 2022-07-18 20:08 | XR ---
EXAMINATION TYPE: XR KUB DATE OF EXAM: 07/18/2022 7:38 PM INDICATION: Patient age:Male; 56 years old; Reason for study: abdominal pain; COMPARISON: None. TECHNIQUE: One radiographic view of the abdomen was obtained. FINDINGS: The bowel gas pattern is nonspecific without dilated loops of small or large bowel. There i s no evidence for organomegaly or pneumoperitoneum. The osseous structures are intact. No abnormal calcifications are present. Fecal material and gas are demonstrated throughout the colon and rectum. IMPRESSION: Nonspecific bowel gas pattern without radiographic evidence for acute process.
[2022-07-18 20:28] LABS: Basophils # (A) 0.1 k/uL (0-0.2); Basophils % (A) 0 %; Eosinophils # (A) 0.1 k/uL (0-0.7); Eosinophils % (A) 1 %; HCT 38.9 % (39.0-53.0); HGB 13.1 gm/dL (13.0-17.5); Lymphocytes # (A) 1.7 k/uL (1.0-4.8); Lymphocytes % (A) 7 %; MCH 29.2 pg (25.0-35.0); MCHC 33.7 g/dL (31.0-37.0); MCV 86.5 fL (80.0-100.0); Mean Platelet Volume 7.9; Monocytes # (A) 1.1 k/uL (0-1.0); Monocytes % (A) 5 %; Neutrophils # (A) 19.4 k/uL (1.3-7.7); Neutrophils % (A) 86 %; Platelet Count 251 k/uL (150-450); RDW 13.7 % (11.5-15.5); WBC 22.5 k/uL (3.8-10.6)
[2022-07-18 20:38] LABS: Albumin 3.4 g/dL (3.5-5.0); Calcium 8.3 mg/dL (8.4-10.2); Partial Thromboplastin Time 25.3 sec (22.0-30.0); Potassium 5.8 mmol/L (3.5-5.1); Prothrombin Time 10.4 sec (9.0-12.0); Total Bilirubin 1.3 mg/dL (0.2-1.3); Total Protein 5.8 g/dL (6.3-8.2)
[2022-07-18] MEDS ORDERED: METOCLOPRAMIDE 10 MG TAB PO STA (21:14)
[2022-07-18] MEDS ORDERED: MECLIZINE 25 MG TAB PO STA (21:14)
--- NOTE | 2022-07-18 21:33 | CT ---
EXAMINATION TYPE: CT abdomen pelvis wo con CT DLP: 332.8 mGycm, Automated exposure control for dose reduction was used. DATE OF EXAM: 07/18/2022 8:51 PM COMPARISON: None CLINICAL INDICATION:Male, 56 years old with history of Abdominal pain acute; ABD PAIN TECHNIQUE: Axial CT of the abdomen and pelvis. Sagittal and coronal reformats were created on a [employer] workstation. Contrast used: None Oral contrast used: without Oral Contrast FINDINGS: LOWER CHEST: Trace bilateral pleural effusions. ABDOMEN LIVER: Unremarkable GALLBLADDER AND BILE DUCTS: Unremarkable. PANCREAS: Unremarkable. SPLEEN: Unremarkable. ADRENAL GLANDS: Unremarkable. KIDNEYS AND URETERS: Left perinephric fat stranding which extends along the left ureter. No obvious o bstructive uropathy identified. Evaluation is limited without IV contrast. No evidence of obstructive uropathy or calculus of the right kidney. PELVIS BLADDER: Unremarkable REPRODUCTIVE: Unremarkable. ABDOMEN & PELVIS STOMACH AND BOWEL: No evidence of bowel obstruction. Appendix is normal. Gaseous distention of the mi d colon. There is relatively nondistention of the descending colon and extending to the rectum.; Sequ ential wall thickening up to 7 mm. PERITONEUM: No evidence of pneumoperitoneum or free fluid. VASCULATURE: No evidence of aortic aneurysm. Severe atherosclerosis of the arterial vasculature most pronounced in the distal aorta. MUSCULOSKELETAL: No acute osseous abnormalities LYMPH NODES: No gross evidence for lymphadenopathy. SOFT TISSUE/ABDOMINAL WALL: Unremarkable IMPRESSION: 1. Limited exam without IV or oral contrast. 2. Left perinephric fat stranding without evidence of hydronephrosis. Correlate with urinalysis for ascending infection such as pyelonephritis. 3. There is mild circumferential wall thickening of the left colon measuring up to 7 mm which could be due to underdistention. Correlate for colitis. 4. Severe atherosclerosis of the arterial vasculature most pronounced in the distal aorta. 5. Trace bilateral pleural effusions.
[2022-07-18] MEDS ORDERED: SODIUM BICARB 8.4% 50 ML SYR (1 MEQ/ML) IV STA (22:04)
[2022-07-18] MEDS ORDERED: CALCIUM CHLORIDE 100 MG/ML 10 ML SYRINGE IVP STA (22:04)
[2022-07-18] MEDS ORDERED: INSULIN REGULAR 100 UNIT/ML VIAL (IV) IV ONE (22:05)
[2022-07-18 22:21] LABS: Magnesium 2.3 mg/dL (1.6-2.3)
--- NOTE | 2022-07-18 22:22 | XR ---
EXAMINATION TYPE: XR chest 1V DATE OF EXAM: 07/18/2022 COMPARISON: NONE HISTORY: Short of breath TECHNIQUE: Single view FINDINGS: Heart is normal. Lungs are clear of infiltrate. No heart failure. There is calcified granul marjorie in the right lung. There are no hilar masses. Bony thorax is intact. There are chest leads. IMPRESSION: No active cardiopulmonary disease. Normal heart.
[2022-07-18 22:29] LABS: ABG Base Excess -13.2 mmol/L; ABG HCO3 15 mmol/L (21-25); ABG Oxygen Saturation 99.6 % (94-97); ABG PCO2 35 mmHg (35-45); ABG PH 7.22 (7.35-7.45); ABG PO2 267 mmHg (83-108); ABG TCO2 16 mmol/L (19-24); Allen Test Performed? Yes
[2022-07-18] MEDS ORDERED: DEXTROSE 5% IN WATER 100 ML with AMIODARONE 150 MG IV ONE ×2 (22:30→22:36)
[2022-07-18] MEDS ORDERED: AMIODARONE 360 MG in DEXTROSE 5% IN WATER 200 ML IV ONE ×2 (22:37)
[2022-07-18] MEDS ORDERED: HEPARIN SODIUM 1,000 UN/ML (10ML VL) IV ONE (22:37)
[2022-07-18] MEDS ORDERED: HEPARIN SOD,PORK IN 0.45% NACL 25,000 UNIT in 0.45% NACL 1 250ML.BAG IV SCH (22:45)
[2022-07-18] MEDS ORDERED: fentaNYL (PF) 50 MCG/ML 2 ML AMP IVP STA (22:59)
[2022-07-18 23:02] LABS: Albumin 2.8 g/dL (3.5-5.0); Calcium 10.1 mg/dL (8.4-10.2); Potassium 5.4 mmol/L (3.5-5.1); Total Bilirubin 1.3 mg/dL (0.2-1.3); Total Protein 4.9 g/dL (6.3-8.2)
--- NOTE | 2022-07-19 00:43 | CT ---
CT angiogram of the chest abdomen and pelvis with runoff. History decreased pulses. Mottling of the lower extremities. Comparison none. FINDINGS: Images obtained from the thoracic inlet to the diaphragm without contrast. Images were obtained from the thoracic inlet through the feet with the IV contrast there are 3-D post processed images. There is a mild bilateral pleural effusion. Heart size is normal. No pericardial effusion. There is n o mediastinal adenopathy. Thoracic aorta is intact. No aneurysm. No evidence of filling defect in the pulmonary arteries. No thoracic aortic dissection. There is proptosis of the upper abdominal aorta. Thrombosis is seen distal to the superior mesenteric artery. There is arterial flow in the celiac artery and superior mesenteric artery. No signal arteri al flow seen in the kidneys. There is only some mild right renal artery cortical opacification involv ing the anterior cortex. Left kidney does not show any vascular flow. There is patchy sclerosis and c alcification in the lower and mid abdominal aorta extending into the iliac arteries. There is some co ntrast opacification of the femoral arteries apparently through collateral vessels in the abdomen. Co llateral intramuscular branches are seen on the anterior and posterior abdomen. There is arterial flow in the femoral arteries bilaterally and the popliteal arteries. There is arter ial flow in the tibial arteries and anterior tibial artery trifurcations. Arteries are diminutive. Th ere is arterial flow at the right foot in the posterior tibial artery. No flow seen in the right foot at the dorsalis pedis artery. On the left side there is posterior tibial artery flow at the ankle an d midfoot. No definite flow seen in the dorsalis pedis artery at the ankle. There is arterial flow demonstrated in the inferior mesenteric artery. 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 There is minimal arterial flow in the right renal artery and opacification of the anterior cortex right kidney. There is no flow seen in the left renal artery. There is no flow seen in the lower abd ominal aorta and the iliac arteries. There are collateral vessels in the abdomen and supplying the fe moral arteries. There is arterial flow in both legs without evidence of focal hemodynamic arterial st enosis. No evidence of pulmonary embolism. Minute pleural effusions. Extensive atherosclerotic vascular calci fication in the abdominal aorta and the iliac arteries.
[2022-07-19 01:38] VITALS: BP 106/82; PULSE 118; RESP 20
[2022-07-19] MEDS ORDERED: AMIODARONE 450 MG in DEXTROSE 5% IN WATER 250 ML IV SCH ×2 (04:36)
== END 2022-07-19 02:10 | disposition other institution (70) ==
LOC: EC 18:32 → EEVIPCON 18:32 → EC 07-19 02:10
DX: N17.9 Acute kidney failure, unspecified (principal); R77.8 Other specified abnormalities of plasma proteins; E87.5 Hyperkalemia; N39.0 Urinary tract infection, site not specified; I74.10 Embolism and thrombosis of unspecified parts of aorta; Z86.73 Personal history of transient ischemic attack (TIA), and cerebral infarction without residual deficits; E78.5 Hyperlipidemia, unspecified; I10 Essential (primary) hypertension; Z88.0 Allergy status to penicillin; Z79.82 Long term (current) use of aspirin; Z79.899 Other long term (current) drug therapy
CPT/HCPCS: 99291 ×2; 99292 ×4; 96365 ×2; 96368 ×2; 96361 ×5; 96375 ×4; 96376 ×2; 96367 ×2; 36415; 36600; 93005; 80053; 82150; 82805; 83605; 83690; 83735; 84484; 85025; 85610; 85730; 71045; 74018; 75635; 71275; 74176; J0282 ×2; J0696; J3010; J1644 ×2; Q9967